=== PATIENT | female | born 1980 | race Caucasian/White ===

== ENCOUNTER 2019-10-22 16:37 | Outpatient (CLI) | payer OTHER, SELFPAY ==
--- NOTE | ~2019-10-22 | XR_ITS ---
EXAMINATION: XR lumbar spine 2-3V DATE: 10/22/2019 17:00 INDICATION: Lumbago with right-sided sciatica. TECHNIQUE: 3 views of lumbar spine were obtained. COMPARISON: Lumbar spine radiographs 03/28/2012 FINDINGS: There is hypolordosis of lumbar spine. Vertebral body heights are normal. There is mildly d ecreased disc height at L4-L5 and moderately decreased disc height at L5-S1. There is moderate facet joint osteoarthritis in lower lumbar spine. Surgical clips in the right upper quadrant are likely fro m cholecystectomy. IMPRESSION: 1. Moderate lumbar spondylosis, worsened from 03/28/2012. Reviewed, dictated and finalized at location A.
== END 2019-10-22 16:38 | disposition home or self-care (01) ==
PROVIDERS: PCP Physician Assistant; Visit Provider Family Medicine
DX: M54.41 Lumbago with sciatica, right side (principal); M47.816 Spondylosis without myelopathy or radiculopathy, lumbar region
CPT/HCPCS: 72100

== ENCOUNTER 2019-12-25 14:00 | Outpatient (RCR) | payer OTHER, SELFPAY ==
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
--- NOTE | 2019-11-03 09:32 | PCPTNOTE ---
pt called and canceled today's appt due to illness;
--- NOTE | 2019-11-13 11:03 | PCPTNOTE ---
Patient called & cancelled scheduled appointment this date due to having car issues.
--- NOTE | 2019-11-25 15:46 | PCPTNOTE ---
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
--- NOTE | 2019-12-04 10:49 | PCPTNOTE ---
pt did not show for today's reevaluation; called pt phone and she did not have voice mail set up, so could not leave her a message;
--- NOTE | 2019-12-21 13:09 | PCPTNOTE ---
pt called and rescheduled today's reevaluation;
--- NOTE | 2019-12-22 13:59 | PCPTNOTE ---
pt called and rescheduled today's reevaluation;
--- NOTE | 2019-12-25 14:43 | PTOPEVAL ---
PHYSICAL THERAPY RE-EVALUATION AND UPDATED PLAN OF CARE 12-25-2019 See clinical summary below for comparison to initial evaluation. PT is to continue 0-2x/week for 6 weeks. She wants to hold PT for a few weeks--she is in the middle of moving and does not have a car at this time. When she can resume treatments, she will call for an appointment. Thank you for referring Nata Cody to [facility].? Please review, sign, date and return this plan of care [facility]. I agree with and certify that the following plan of care is medically necessary. Referring Physician Date Attending Provider: Ani Monae MD *PT Outpatient Re-Evaluation Document 12/25/19 14:00 PRAVIN (Rec: 12/25/19 14:43 PRAVIN [id number]) Subjective Information Nata reports: have lost Query Text:As Reported By Patient/ about 10#- stress and busy Family life; back is better; been trying to do the stretches as can; hectic and moving into new home, break up with her boyfriend; had phone visit with yesterday; wants a MRI of her back; feels that PT helps, but busy now and cannot get in for appointments --moving and to get a car; wants to continue PT in few weeks, when things settle down ; Oswestry self assessment functional score of 36% limitation in activity level; Pain Assessment Timing of Pain Assessment Timing of Pain Assessment Assessment Pain Scale Pain Scale Used Numeric (1 - 10) Self Report Pain Assessment Bilateral Back Reported Pain Level 4 Pain Description Aching,Dull Radicular Pain Location no leg pain Pain Frequency Chronic Other Pain Description lower R low back Lowest Pain Intensity 0 Greatest Pain Intensity 6 Pain Aggravating Factors Exercise/Activity Other Pain Aggravating Factors when first get up in morning; lift heavy laundry basket; Pain Relief Interventions Used By Inactivity/Rest,Medication, Patient Position Change Other Alleviating Interventions in hooklying position- no pain ; Additional Pain Comments have been sleeping on couch or floor; middle of moving Pain Score Pain Score 4: Self Report Additional Pain Score Comments reported tolerances: sitting 10 minutes; walking 30 minutes
--- NOTE | 2020-01-29 10:23 | PCPTNOTE ---
PHYSICAL THERAPY DISCHARGE 01-29-2020 Attending Provider: Ani Monae MD Patient:Nata Cody Date of :1980 Ms. Cody has not returned for any further treatments since the reevaluation on 12/25/2019, therefore she will be discharged at this time. Refer to the reevaluation report for her status at the last session. The goals were not addressed. Thank you for referring Nata to [facility]. Please review, sign, date and return this discharge summary TOBI. I have been updated about the patient's current status and I agree with discharge from the above service at this time. Referring Physician Date
== END 2020-01-28 23:59 | disposition home or self-care (01) ==
LOC: ANHPT 14:00
PROVIDERS: PCP Family Medicine; Visit Provider Family Medicine
DX: M54.41 Lumbago with sciatica, right side (principal)
CPT/HCPCS: 97110; 97161

== ENCOUNTER 2021-02-07 10:01 | Emergency (ER) | payer SELFPAY ==
[2021-02-07 10:18] VITALS: BP 141/87; PULSE 86; RESP 16; TEMP 36.7; O2SAT 100
--- NOTE | 2021-02-07 10:31 | ED.DENTAL ---
HPI - Dental/Oral General Chief complaint: Dental/Oral Stated complaint: Rt side tooth pain Time Seen by Provider: 02/07/21 10:17 Source: patient and RN notes reviewed Mode of arrival: ambulatory Limitations: no limitations History of Present Illness HPI Narrative: Patient presents today complaining of right lower dental pain x3 days and a tooth that has been cracked for quite a while. Reports swelling to the right lower jawline since last night with sweats. Denies known fever, shortness of breath, difficulty swallowing. She currently rates her pain 7/10 and has been taking ibuprofen with mild relief. MD Complaint: tooth pain Related Data Home Medications Medication Instructions Recorded Confirmed ibuprofen PO Q4-8H 02/07/21 Allergies Allergy/AdvReac Type Severity Reaction Status Date / Time No Known Allergies Allergy Unverified 06/16/18 17:38 Review of Systems Review of Systems: CONSTITUTIONAL: Denies body aches, fever, chills, or sweats. EYES: Denies visual changes, redness, or discharge. ENT: Denies rhinorrhea, congestion, sore throat, or otalgia.+ Dental pain CARDIOVASCULAR: Denies chest pain, palpitations, or edema. RESPIRATORY: Denies cough or dyspnea. GASTROINTESTINAL: Denies abdominal pain, nausea, vomiting, or diarrhea. GENITOURINARY: Denies dysuria or hematuria. SKIN: Denies rash, itching, or wounds. MUSCULOSKELETAL: Denies back pain, joint pain, or myalgia. NEUROLOGIC: Denies headache, numbness, tingling, or weakness. PSYCH: Denies depression or anxiety. [facility] Family History Family History Mother Family history of osteoporosis Family history of lymphoma Father Family history of diabetes mellitus in first degree relative Social History Social History Alcohol intake: never Comments At time of signature, I have reviewed and agree with nursing past medical, surgical, social and family history unless otherwise noted. Please see nursing chart for further information. There is no relevant family history pertinent to the presenting complaint Exam Narrative: GENERAL: Well-appearing, well-nourished, and in no acute distress. HEAD: Normocephalic, atraumatic. EYES: EOMI. No redness or drainage. Conjunctivae normal. ENT: Mucous membranes pink and moist. Throat normal. Uvula midline. Tooth #27 is cracked and the posterior one third is missing. Right lower jawline is mildly swollen and tender to palpation. No obvious periapical abscess is noted. No trismus. NECK: Normal AROM. Supple. No lymphadenopathy. CHEST: No respiratory distress. Clear to auscultation. HEART: Regular rate and rhythm. No murmur appreciated. Normal peripheral pulses. EXTREMITIES: Normal range of motion. No edema. SKIN: Warm, dry, no rash. Capillary refill normal. Normal skin turgor. NEURO: No focal deficits. Alert and oriented x3. Gait steady. PSYCH: Normal affect. No signs of depression or anxiety. Course Vital Signs Vital signs: Vital Signs Temperature 98.0 F 02/07/21 10:18 Pulse Rate 86 02/07/21 10:18 Respiratory Rate 16 02/07/21 10:18 Blood Pressure 141/87 H 02/07/21 10:18 Pulse Oximetry 100 02/07/21 10:18 Temperature 98.0 F 02/07/21 10:18 Pulse Rate 86 02/07/21 10:18 Respiratory Rate 16 02/07/21 10:18 Blood Pressure 141/87 H 02/07/21 10:18 Pulse Oximetry 100 02/07/21 10:18 Reviewed. Pt has been instructed to follow up with her PCP regarding her elevated blood pressure today. MDM - Dental/Oral Differential Diagnosis Differential diagnosis: Likely gingival abscess, dental caries, toothache, dental abscess and fracture of tooth Critical Care Time Critical Care Time Critical Care Time: No Discharge Plan Discharge Clinical Impression: Dental abscess Patient Disposition: Home, Self-Care Condition: Stable Instructions: Antibiotic Form, [place]
== END 2021-02-07 10:35 | disposition home or self-care (01) ==
PROVIDERS: Emergency Provider Nurse Practitioner
DX: K04.7 Periapical abscess without sinus (principal)
CPT/HCPCS: 99213; G0463

== ENCOUNTER 2023-03-03 13:31 | Emergency (ER) | payer OTHER, SELFPAY ==
[2023-03-03 13:46] VITALS: BP 123/70; PULSE 72; RESP 18; TEMP 36.7; O2SAT 100
--- NOTE | 2023-03-03 13:57 | ED.FALL ---
HPI - Fall General Chief Complaint: Fall Stated Complaint: Rt Shoulder,Elbow,and Low Back Pain Due to Fall Source: patient Mode of arrival: ambulatory Limitations: no limitations History of Present Illness HPI Narrative: 42-year-old female presented for complaint of pain to multiple sites after follow work today. 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 She endorses hitting her head but denies loss of consciousness. Endorses pain to right neck, right elbow, and pre-existing right shoulder pain which feels worse since the fall. Denies numbness, tingling, weakness or decreased range of motion of the upper extremities. Denies headache, dizziness, n/v or vision changes. Pt took aleve and reports improvement. Rates pains 08/15. States ?I am just sore. ? Related Data Home Medications Medication Instructions Recorded Confirmed ibuprofen 800 mg tablet PO Q4-8H 02/07/21 Allergies Allergy/AdvReac Type Severity Reaction Status Date / Time No Known Allergies Allergy Unverified 06/16/18 17:38 Review of Systems Review of Systems: CONSTITUTIONAL: Denies body aches, fever, chills EYES: Denies visual changes ENT: Denies rhinorrhea, epistaxis CARDIOVASCULAR: Denies chest pain, palpitations, or edema. RESPIRATORY: Denies cough or dyspnea. GASTROINTESTINAL: Denies abdominal pain, nausea, vomiting, or diarrhea. SKIN: Denies rash, itching, or wounds. MUSCULOSKELETAL: Reports right neck, right shoulder, right elbow pain denies back pain NEUROLOGIC: Denies headache, numbness, tingling, or weakness. All systems reviewed & are unremarkable except as noted in HPI and below [facility] Past Medical History Medical History (Updated 03/03/23 @ 15:03 by Cristina Barcenas APRN) No pertinent past medical history Family History Family History Mother Family history of osteoporosis Family history of lymphoma Father Family history of diabetes mellitus in first degree relative Social History Social History Alcohol intake: never Comments At time of signature, I have reviewed and agree with nursing past medical, surgical, social and family history unless otherwise noted. Please see nursing chart for further information. There is no relevant family history pertinent to the presenting complaint Exam Narrative: GENERAL: Well-appearing, and in no acute distress. HEAD: Normocephalic, atraumatic; no open wounds or knots EYES: PERRLA, EOMI, conjunctivae clear NECK: Supple. no VPT or paraspinal tenderness. Full ROM. Mild right trap tenderness, she reports feels better with palpation. CHEST: Speaks in full sentences. Lungs CTAB. HEART: Regular rate and rhythm. Normal and equal peripheral pulses. EXTREMITIES: BUEs normal strength and sensation, normal range of motion to BUEs, endorses right shoulder pain at deltoid with movement which she says is chronic. No swelling, or ecchymosis, No point tenderness to joints. No open wounds, or obvious deformity; alignment normal, pulse palpable and equal bilaterally, skin warm, dry, pink. Strong and equal guitar teacher strength. Capillary refill less than 3 seconds. SKIN: Warm, dry. NEURO: Alert and oriented x3. PSYCH: Normal mood and affect Neck: Neck images: 1. Location of right neck/trap pain Extrem: Shoulder/upper arm images: 1. area of reported pain with movement, nontender with palpation Course Course Emergency Course: Patient is aware of diagnosis, understands and agrees to treatment plan. Anticipatory guidance given. Patient agrees to follow-up as directed and is aware of reasons to seek care at the emergency department. Portions of this record may have been created with voice recognition software Level of Care: Express Care Visit Vital Signs Vital signs: Vital Signs Temperature 98.1 F 03/03/23 13:46 Pulse
== END 2023-03-03 14:15 | disposition home or self-care (01) ==
PROVIDERS: Emergency Provider Nurse Practitioner Family
DX: M25.511 Pain in right shoulder (principal); M54.2 Cervicalgia; W19.XXXA Unspecified fall, initial encounter; Y99.0 Civilian activity done for income or pay
CPT/HCPCS: 99213; G0463